=== PATIENT | female | born 1975 | race African-American/Black ===

== ENCOUNTER 2020-01-22 17:23 | Emergency (ER) | payer OTHER, SELFPAY ==
[2020-01-22 17:36] VITALS: BP 144/92; PULSE 88; RESP 16; TEMP 36.9; O2SAT 98
--- NOTE | 2020-01-22 17:53 | ED.GENADULT ---
HPI - General Adult General Chief complaint: Unspecified Stated complaint: sore throat, diarrhea Time Seen by Provider: 01/22/20 17:33 History of Present Illness HPI narrative: Patient presents with multiple complaints. The first is that she has had diarrhea for 2 days, with a total of 4 stools. She had no blood in the stool or fever or chills. She does not suspect any particular food, and has not been exposed any known infectious diseases. She does work as a [employer]. She has in the past had intermittent blood in her stool, with itching around the anus. There is no family history of colon cancer, but with the bloody stool I recommended that she see a GI doctor and have a colonoscopy. Her second complaint is that she has a dry throat. She smokes regularly, and drinking water does not help. She has not been on a steroid inhaler for many months, and does not use nose sprays. I recommended she try Thierno tea with some honey. Her third complaint is that her legs become weak and painful on her menses. She has a period every other month as she approaches menopause, and the symptoms occur primarily during her menses. She supposed be on iron pills which she has quit a long time ago. She has had studies for DVT for this, and they were normal. I suggested that the anemia caused by the menses may be decreasing her blood flow to her legs causing the pain. She agrees that might be possible and will follow-up with her [employer]ENIOR [employer] to discuss either uterine ablation or hysterectomy. Meanwhile she will start back on her iron pills Related Data Home Medications Medication Instructions Recorded Confirmed albuterol sulfate 2 puff INHALATION QID PRN 01/22/20 baclofen 10 mg PO BID 01/22/20 cyclobenzaprine 10 mg PO TID PRN 01/22/20 ibuprofen 800 mg PO TID PRN 01/22/20 Allergies Allergy/AdvReac Type Severity Reaction Status Date / Time No Known Allergies Allergy Verified 01/22/20 17:36 Review of Systems Review of Systems: Narrative: CONSTITUTIONAL: Denies fever, chills, or sweats. EYES: Denies visual changes, redness, or discharge. ENT: Denies rhinorrhea, congestion, sore throat, or otalgia.Just a dry throat. CARDIOVASCULAR: Denies chest pain, palpitations, or edema. RESPIRATORY: Denies cough or dyspnea. GASTROINTESTINAL: Denies abdominal pain, nausea, vomiting.She has diarrhea and occasionally blood in her stool. GENITOURINARY: Denies dysuria or hematuria. SKIN: Denies rash or itching. MUSCULOSKELETAL: Denies back pain, joint pain, but complains of leg pains when she is on her period. NEUROLOGIC: Denies headache, numbness, or weakness. PSYCHIATRIC: Denies anxiety or depression. All systems reviewed & are unremarkable except as noted in HPI and below PMFSH Social History Social History (Updated 01/22/20 @ 18:00 by Sylvia Rodriguez MD) Smoking status: Current every day smoker Alcohol intake: current Substance use: never Gender identity (if verbalized by the patient): Female Exam Narrative: Exam Narrative: GENERAL: Well-appearing, well-nourished, and in no acute distress.She is delightful. HEAD: Normocephalic, atraumatic. EYES: PERRLA and EOMI. ENT: Nares clear, no rhinorrhea or epistaxis. Mucous membranes moist. NECK: Supple. CHEST: Clear to auscultation. No respiratory distress. HEART: Regular rate and rhythm. No murmur heard. Normal peripheral pulses. ABDOMEN: Soft, nontender, nondistended, normal active bowel sounds. EXTREMITIES: Normal range of motion. No edema. SKIN: Warm, dry, no rash. NEURO: No focal deficits. Alert and oriented x3. PSYCH: Normal mood and affect. Const: General: no acute distress and alert Orientation/consciousness: patient oriented x3 Course Vital Signs Vital signs: Vital Signs Temperature 98.5 F 01/22/20 17:36 Pulse Rate 88 01/22/20 17:36 Respiratory Rate 16 01/22/20 17:36 Blood Pressure 144/92 H 01/22/20 17:36 Pulse Oximetry 98 01/22/20 17:36 Temperature 98.5 F 01/22/20
== END 2020-01-22 18:58 | disposition home or self-care (01) ==
PROVIDERS: Emergency Provider Emergency Medicine
DX: J39.2 Other diseases of pharynx (principal); J45.20 Mild intermittent asthma, uncomplicated; D64.9 Anemia, unspecified; R19.7 Diarrhea, unspecified; F17.200 Nicotine dependence, unspecified, uncomplicated
CPT/HCPCS: 99281

== ENCOUNTER 2021-08-31 08:51 | Emergency (ER) | payer OTHER, SELFPAY ==
[2021-08-31] VITALS (10 sets, daily range): BP systolic 106–116; BP diastolic 54–76; PULSE 98–119; RESP 16–27; TEMP 37.1; O2SAT 91–97
--- NOTE | ~2021-08-31 | XR_ITS ---
EXAMINATION: XR chest 2V DATE: 08/31/2021 09:47 INDICATION: Cough and fever TECHNIQUE: PA and lateral views of the chest are obtained. COMPARISON: None available FINDINGS: The lungs are free of acute opacities. There is no pleural effusion or pneumothorax. The ca rdiomediastinal silhouette is normal. The visualized bones and soft tissues are unremarkable. IMPRESSION: 1. No acute cardiopulmonary abnormality. Reviewed, dictated and finalized at location A. [employer] [employer]
[2021-08-31] MEDS: SODIUM CHLORIDE 0.9% IV 1,000 ML 999 ML IV CONT (09:56)
--- NOTE | 2021-08-31 11:36 | ED.GENADULT ---
HPI - General Adult General Chief complaint: Unspecified Stated complaint: sore throat, chills, body aches Time Seen by Provider: 08/31/21 09:13 History of Present Illness HPI narrative: Patient is a 46-year-old female who presents ER with cold symptoms. Reports subjective fevers and chills. She has been having body aches as well as some sore throat and occasional cough. No loss of taste or smell. She reports she is had Covid in the past this feels different. No known sick contacts. She has missed work each the last 3 days due to her symptoms. No aggravating or alleviating factors. Patient has been trying DayQuil. Related Data Home Medications Medication Instructions Recorded Confirmed albuterol sulfate 2 puff INHALATION QID PRN 01/22/20 baclofen 10 mg PO BID 01/22/20 cyclobenzaprine 10 mg PO TID PRN 01/22/20 ibuprofen 800 mg PO TID PRN 01/22/20 Allergies Allergy/AdvReac Type Severity Reaction Status Date / Time No Known Allergies Allergy Verified 08/31/21 08:58 Review of Systems Review of Systems: All systems reviewed & are unremarkable except as noted in HPI and below Constitutional: Constitutional: Reports chills, Reports fever(s) and Reports malaise ENT: Denies sinus pressure and Reports sore throat Respiratory: Respiratory: Reports cough, Denies excessive phlegm production, Denies dyspnea and Denies wheezing Gastrointestinal: Gastrointestinal: Denies abdominal pain, Reports diarrhea (X1 today), Denies nausea and Denies vomiting Genitourinary: Genitourinary: Denies dysuria, Denies flank pain and Denies urinary urgency PMFSH Past Medical History Medical History (Updated 08/31/21 @ 11:43 by Chino Lehman MD) Healthy female adult Surgical History Surgical History (Updated 08/31/21 @ 11:40 by Chino Lehman MD) No history of previous surgery Social History Social History (Updated 01/22/20 @ 18:00 by Sylvia Rodriguez MD) Smoking status: Current every day smoker Alcohol intake: current Substance use: never Gender identity (if verbalized by the patient): Female Exam Narrative: GENERAL: Well-appearing, well-nourished, and in no acute distress. HEAD: Normocephalic, atraumatic. ENT: Mucous membranes moist. Normal-appearing posterior oropharynx without tonsillar hypertrophy or exudate, uvula midline and nonedematous. NECK: Supple. CHEST: Clear to auscultation. No respiratory distress. HEART: Regular rate and rhythm. Normal peripheral pulses. ABDOMEN: Soft, nontender, nondistended. EXTREMITIES: Normal range of motion. No edema. SKIN: Warm, dry, no rash. NEURO: Alert and oriented x3. Course Course Emergency Course: Patient informed results. Work is requesting a Covid test soone will be performed. Discharge home. Vital Signs Vital signs: Vital Signs Temperature 98.8 F 08/31/21 08:57 Pulse Rate 119 H 08/31/21 08:57 Respiratory Rate 16 08/31/21 08:57 Blood Pressure 106/54 L 08/31/21 08:57 Pulse Oximetry 91 08/31/21 08:57 Temperature 98.8 F 08/31/21 08:57 Pulse Rate 98 08/31/21 10:45 Respiratory Rate 19 08/31/21 10:45 Blood Pressure 110/74 08/31/21 09:30 Pulse Oximetry 93 08/31/21 10:45 Medical Decision Making Vital Signs Vital Signs: Vital Signs Temperature 98.8 F 08/31/21 08:57 Pulse Rate 119 H 08/31/21 08:57 Respiratory Rate 16 08/31/21 08:57 Blood Pressure 106/54 L 08/31/21 08:57 Pulse Oximetry 91 08/31/21 08:57 Temperature 98.8 F 08/31/21 08:57 Pulse Rate 98 08/31/21 10:45 Respiratory Rate 19 08/31/21 10:45 Blood Pressure 110/74 08/31/21 09:30 Pulse Oximetry 93 08/31/21 10:45 Lab Data Labs: Influenza A Screen Negative Reference Range: Negative Influenza B Screen Negative Reference Range: Negative Imaging Data Radiologist's impression: ITS Impre
[2021-09-02 20:05] LABS: SARS-CoV-2 RNA PCR Negative
== END 2021-08-31 12:20 | disposition home or self-care (01) ==
PROVIDERS: Emergency Provider Emergency Medicine; PCP Internal Medicine Infectious Disease
DX: B34.9 Viral infection, unspecified (principal); Z20.822 Contact with and (suspected) exposure to COVID-19; Z86.16 Personal history of COVID-19; F17.200 Nicotine dependence, unspecified, uncomplicated
CPT/HCPCS: 71046; 87804; 96360; 99283; C9803; J7030; U0003; U0005